=== PATIENT | male | born 1975 | race Caucasian/White ===

== ENCOUNTER 2016-05-25 02:27 | Emergency (ER) | payer OTHER ==
[2016-05-25] MEDS ORDERED: KETOROLAC TROMETHAMINE 30 MG/1 ML VIAL IM ONE (02:37)
[2016-05-25 02:38] VITALS: BP 116/68; PULSE 53; TEMP 97.9; BMI 23.6
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
[2016-05-25] MEDS ORDERED: KETOROLAC TROMETHAMINE 30 MG/1 ML VIAL ONE (02:48)
--- NOTE | 2016-05-25 02:54 | PDOC ---
*Physical Exam - Vital Signs Last Vital Signs Temp Pulse Resp BP Pulse Ox 97.9 F 53 L 20 116/68 97 05/25/16 02:36 05/25/16 02:36 05/25/16 02:36 05/25/16 02:36 05/25/16 02:36 ED Treatment Course - Medications Given in the ED: ED Medications Discontinued Medications Generic Name Dose Route Start Last Admin Trade Name Freq PRN Reason Stop Dose Admin Ketorolac Tromethamine 30 mg 05/25/16 02:37 05/25/16 02:51 Toradol Injection - IM 05/25/16 02:38 30 mg ONCE ONE Administration Medical Decision Making - Medical Decision Making 05/25/16 02:54 agree with care from DEVAN Wlide *DC/Admit/Observation/Transfer Diagnosis at time of Disposition: Muscle strain of right upper back Qualifiers: Encounter type: initial encounter Qualified Code(s): S29.012A - Strain of muscle and tendon of back wall of thorax, initial encounter - Prescriptions Prescriptions: Cyclobenzaprine HCl 7.5 mg PO HS PRN #5 tablet PRN Reason: Muscle Spasms Naproxen 250 mg PO BID #14 tablet - Referrals Referrals: Damion Desir MD [Staff Physician] - - Patient Instructions Printed Discharge Instructions: DI for Muscle Strain Additional Instructions: Please take medications as prescribed. If symptoms persist past 3-5 days, please follow up with orthopedics (referral provided). If you experience any new or worsening symptoms, please return to the ER. - Post Discharge Activity
== END 2016-05-25 02:54 | disposition home or self-care (01) ==
LOC: JER 02:27
PROC: 3E0233Z Introduction of Anti-inflammatory into Muscle, Percutaneous Approach (ICD-10-PCS; principal; 2016-05-25)
DX: S29.012A Strain of muscle and tendon of back wall of thorax, initial encounter (principal); Y35.811A Legal intervention involving manhandling, law enforcement official injured, initial encounter; Y93.89 Activity, other specified; Y92.89 Other specified places as the place of occurrence of the external cause; Y99.0 Civilian activity done for income or pay
CPT/HCPCS: 99282-25

== ENCOUNTER 2017-07-07 01:05 | Emergency (ER) | payer OTHER ==
[2017-07-07 01:26] VITALS: BP 127/89; PULSE 88; TEMP 98.6; BMI 28.0
--- NOTE | 2017-07-07 01:44 | PDOC ---
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 The patient describes his back pain as a spasm-like sensation localized in the right paraspinal area with radiation down to the sacrum, which is aggravated by movement. 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 The patient denies radiation down to the lower extremities. He denies taking medications for pain. Allergies: NKA <Jerrell Briggs - Last Filed: 07/07/17 01:58> - Resident Resident Name: Katarzyna Shankar - ED Attending Attestation I have performed the following: I have examined & evaluated the patient, The case was reviewed & discussed with the resident, I agree w/resident's findings & plan, Exceptions are as noted - Physicial Exam PE: 07/07/17 02:34 *Physical Exam General Appearance: Yes: Appropriately Dressed. No: Apparent Distress, Intoxicated HEENT: positive: EOMI, FABRICIO, Normal ENT Inspection, Normal Voice, TMs Normal, Pharynx Normal. negative: Pale Conjunctivae, Photophobia, Scleral Icterus (R), Scleral Icterus (L) Neck: positive: Trachea midline, Normal Thyroid, Supple. negative: Tender, Rigid, Carotid bruit, Stridor, Lymphadenopathy (R), Lymphadenopathy (L), Thyromegaly Respiratory/Chest: positive: Lungs Clear, Normal Breath Sounds. negative: Chest Tender, Respiratory Distress, Accessory Muscle Use, Labored Respiration, RES, Crackles, Rales, Rhonchi, Stridor, Wheezing, Dullness Cardiovascular: positive: Regular Rhythm, Regular Rate, S1, S2. negative: Edema , JVD, Murmur, Bradycardia, Tachycardia Vascular Pulses: Dorsalis-Pedis (R): 2+, Doralis-Pedis (L): 2+ Gastrointestinal/Abdominal: positive: Normal Bowel Sounds, Flat, Soft. negative : Tender, Organomegaly, Pulsatile Mass, Increased Bowel Sounds, Decreased BS, Distended, Guarding, Rebound, Hernia, Hepatomegaly, Spleenomegaly Lymphatic: negative: Adenopathy, Tenderness Musculoskeletal: positive: Normal Inspection. + right sided paraspinal muscle spasms negative: CVA Tenderness, Decreased Range of Motion Extremity: positive: Normal Capillary Refill, Normal Inspection, Normal Range of Motion, Pelvis Stable. negative: Tender, Pedal Edema, Swelling, Erythema Integumentary: positive: Normal Color, Dry, Warm. 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 negative: EOM Palsy, Facial Droop, Sensory Deficit - Medical Decision Making 07/11/17 19:42 Pt treated and released <Garcia Anand - Last Filed: 07/11/17 19:42>
[2017-07-07] MEDS ORDERED: IBUPROFEN 400 MG TABLET (FP) PO ONE ×2 (01:47→02:05)
[2017-07-07] MEDS ORDERED: METHOCARBAMOL 500 MG TABLET PO ONE (01:47)
--- NOTE | 2017-07-07 01:54 | PDOC ---
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 The patient denies any actual falls, any loss of consciousness, any neck pain, or any numbness, tingling, weakness, chest pain, abdominal pain, headache, vision changes, dizziness/lightheadedness, or other symptoms. He has not taken any medications for the pain since this happened at about 12:30 AM today. Past History - Past Medical History Allergies/Adverse Reactions: Allergies Allergy/AdvReac Type Severity Reaction Status Date / Time No Known Allergies Allergy Verified 07/07/17 01:25 Home Medications: Ambulatory Orders Acetaminophen [Tylenol] 650 mg PO PRN 05/25/16 Cyclobenzaprine HCl 7.5 mg PO HS PRN #5 tablet 05/25/16 Naproxen 250 mg PO BID #14 tablet 05/25/16 Methocarbamol [Robaxin -] 500 mg PO TID #21 tablet 07/07/17 - Immunization History Td Vaccination: Yes Immunization Up to Date: Yes - Suicide/Smoking/Psychosocial Hx Smoking Status: No Smoking History: Never smoked Years of Tobacco Use: 0 Have you smoked in the past 12 months: No Number of Cigarettes Smoked Daily: 0 Cigars Per Day: 0 Information on smoking cessation initiated: No Hx Alcohol Use: No Drug/Substance Use Hx: No Substance Use Type: None Trauma Specific PMHX - Complaint Specific PMHX Arthritis: No Review of Systems - Review of Systems Able to Perform ROS?: Yes Constitutional: No: Chills, Fever, Unexplained wgt Loss HEENTM: No: Nose Congestion, Throat Pain Respiratory: No: Cough, Shortness of Breath Cardiac (ROS): No: Chest Pain, Palpitations ABD/GI: No: Constipated, Diarrhea, Nausea, Vomiting : No: Burning, Dysuria Musculoskeletal: Yes: Back Pain. No: Neck Pain Integumentary: No: Bruising, Rash Neurological: No: Headache, Numbness, Tingling, Weakness, Dizziness Endocrine: No: Unexplained Weight Gain, Unexplained Weight Loss *Physical Exam - Vital Signs Last Vital Signs Temp Pulse Resp BP Pulse Ox 98.6 F 88 20 127/89 100 07/07/17 01:25 07/07/17 01:25 07/07/17 01:25 07/07/17 01:25 07/07/17 01:25 - Physical Exam General Appearance: Yes: Nourished, Appropriately Dressed, Other (alert, oriented, pleasant, well-appearing adult male who appear mildly uncomfortable, answering questions appropriately). No: Apparent Distress HEENT: positive: EOMI, FABRICIO, Normal Voice, Hearing Grossly Normal. negative: Scleral Icterus (R), Scleral Icterus (L), Nasal Congestion Neck: positive: Trachea midline, Supple. negative: Tender, Rigid Respiratory/Chest: negative: Respiratory Distress, Labored Respiration, Rapid RR , Stridor Cardiovascular: positive: Regular Rhythm, Regular Rate. negative: Murmur Gastrointestinal/Abdominal: positive: Flat, Soft. negative: Tender, Pulsatile Mass, Guarding Musculoskeletal: positive: Normal Inspection, Muscle Spasm, Other (appears to be holding back in a bit of a stiff position, no vertebral stepoff or deformity) . negative: CVA Tenderness, Vertebral Tenderness Extremity: positive: Normal Capillary Refill, Normal Inspection, Normal Range of Motion. negative: Tender, Cyanosis Integumentary: positive: Normal Color, Dry, Warm. negative: Erythema, Rash, Bruising Neurologic: positive: cushion maker II-XII NML intact (grossly), Fully Oriented, Alert, Normal Mood/Affect, Normal Response, Motor Strength 5/5. negative: EOM Palsy, Facial Droop, Numbness, Sensory Deficit, Confused, Disoriented Medical Decision Making - Medical Decision Making Patient with h/o occasional flares of back pain and herniated lumbar disc p/w acute right T/L paraspinous pain after heavy lifting work injury. No new red flag symptoms (see HPI). Initial Vital Signs Temp Pulse Resp BP Pulse Ox 97.4 F L 78 18 132/75 99 07/07/17 01:27 07/07/17 01:27 07/07/17 01:27 07/07/17 01:27 07/07/17 01:27 Exam: Well appearing, a bit uncomfortable, stiff back, right paraspinous ttp and moderate spasm without vertebral stepoff or deformity. DDX IBNLT: back strain/sprain, less likely compression or other vertebral/ spinous process fracture, DDD, DJD, osteophyte, or other more concerning etiology. W/U ordered: CT L-Spine without contrast. TX ordered: Motrin 800 mg, Robaxin [address] L-Spine: Loss of intervertebral disc space height, and disc bulge, but no acute bony abnormality. Reassessment: Pain and spasm much improved after ED medications. The patient has gotten significant relief of symptoms with ED medications. They are appropriate for discharge with close outpatient follow up. The patient is comfortable with this plan and will follow up with their PCP in 1 -3 days. Return precautions are discussed and they will come back to the ER if necessary. *DC/Admit/Observation/Transfer Diagnosis at time of Disposition: Back sprain, Muscle spasm, Work related injury - Discharge Dispostion Disposition: HOME Condition at time of disposition: Stable Decision to Admit order: No - Prescriptions Prescriptions: Methocarbamol [Robaxin -] 500 mg PO TID #21 tablet - Referrals - Patient Instructions Printed Discharge Instructions: DI for Back Strain or Sprain Additional Instructions: You were seen in the ER for a work-related back injury (back strain/sprain with muscle spasms). We gave you Robaxin and Motrin here in the ER, which helped with your pain. We did a CT scan of the lower back because this is where bones are most commonly injured during heavy lifting. We did not find any new changes on the CT that could indicate any serious injury. After our assessment, we do not believe you are having a medical emergency at this time, and we believe you are safe to go home. 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 Take Motrin 800 mg if you need it for pain (follow the directions on the bottle), or Tylenol up to 1,000 mg for additional pain control (follow the directions on the bottle). Please follow up with your regular PCP doctor in the next 1-4 days , Call their clinic as soon as possible, tell them you were seen in the ER for back pain, and tell them you need an appointment. If you have any new or worsening symptoms please come back to the ER at any time (24 hours a day), especially for new numbness, new tingling, new weakness, new urinary or bowel incontinence or retention, pain you cannot control with Robaxin, Motrin, and Tylenol, or other new symptoms. If you are having severe or life threatening symptoms, or symptoms that make it unsafe to drive or have someone drive you, please call 911. - Post Discharge Activity Forms/Work/School Notes: Back to Work
[2017-07-07] MEDS ORDERED: METHOCARBAMOL 500 MG TABLET ONE (02:05)
== END 2017-07-07 03:09 | disposition home or self-care (01) ==
LOC: JER 01:05
DX: S33.5XXA Sprain of ligaments of lumbar spine, initial encounter (principal); X58.XXXA Exposure to other specified factors, initial encounter; Y93.89 Activity, other specified; Y92.89 Other specified places as the place of occurrence of the external cause; Y99.0 Civilian activity done for income or pay; M62.830 Muscle spasm of back
CPT/HCPCS: 72131-TC; 99283-25

== ENCOUNTER 2018-05-26 17:04 | Emergency (ER) | payer OTHER ==
[2018-05-26 17:19] VITALS: BP 119/83; PULSE 48; TEMP 97.8; BMI 25.1
--- NOTE | 2018-05-26 17:35 | PDOC ---
History of Present Illness - General Chief Complaint: Pain, Acute Stated Complaint: ARM INJURY/[facility] Time Seen by Provider: 05/26/18 17:16 - History of Present Illness Initial Comments: 05/26/18 17:33 42-year-old male without comorbidities presents for evaluation of right elbow and wrist pain. 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 No head injury loss consciousness post injury nausea vomiting or headache. No post injury visual changes. Only injury is right wrist and elbow. Past History - Past Medical History Allergies/Adverse Reactions: Allergies Allergy/AdvReac Type Severity Reaction Status Date / Time No Known Allergies Allergy Verified 05/26/18 17:14 Home Medications: Ambulatory Orders NK [No Known Home Medication] 05/26/18 COPD: No - Immunization History Td Vaccination: Yes Immunization Up to Date: Yes - Suicide/Smoking/Psychosocial Hx Smoking Status: No Smoking History: Never smoked Years of Tobacco Use: 0 Have you smoked in the past 12 months: No Number of Cigarettes Smoked Daily: 0 Cigars Per Day: 0 Information on smoking cessation initiated: No Hx Alcohol Use: No Drug/Substance Use Hx: No Substance Use Type: None Review of Systems - Review of Systems Musculoskeletal: Yes: Joint Pain *Physical Exam - Vital Signs Last Vital Signs Temp Pulse Resp BP Pulse Ox 97.8 F 48 L 16 119/83 97 05/26/18 17:14 05/26/18 17:14 05/26/18 17:14 05/26/18 17:14 05/26/18 17:14 - Physical Exam Comments: 05/26/18 17:34 Right wrist skin color and temperature are normal. Range of motion is full with discomfort at terminal flexion and extension. Negative axial grind. No TFCC tenderness. No scaphoid tenderness. Mild tenderness over the area of the scapholunate ligament. Full supination and pronation without discomfort. No gross sensorimotor deficits. Is neurovascularly intact. Right elbow skin color and temperature are normal. There is a superficial abrasion on the posterior aspect of the right elbow. Full range of motion supination and pronation. No tenderness about the radial head with deep palpation. No tenderness about the biceps tendon. Mild tenderness over the area of the olecranon medial and lateral epicondyle. No evidence of instability or gross sensorimotor deficits. Is neurovascularly intact. Moderate Sedation - Procedure Monitoring Vital Signs: Procedure Monitoring Vital Signs Temperature 97.8 F 05/26/18 17:14 Pulse Rate 48 L 05/26/18 17:14 Respiratory Rate 16 05/26/18 17:14 Blood Pressure 119/83 05/26/18 17:14 O2 Sat by Pulse Oximetry (%) 97 05/26/18 17:14 ED Treatment Course - RADIOLOGY Radiology Studies Ordered: Category Date Time Status ELBOW-RIGHT [RAD] Stat Radiology 05/26/18 17:33 Ordered WRIST- RIGHT [RAD] Stat Radiology 05/26/18 17:33 Ordered Medical Decision Making - Medical Decision Making 05/26/18 17:56 X-rays of the right wrist show scapholunate widening no acute fracture. X-rays of the right elbow show no evidence of fracture trauma destructive process *DC/Admit/Observation/Transfer Diagnosis at time of Disposition: Wrist sprain, Elbow contusion - Discharge Dispostion Disposition: HOME Condition at time of disposition: Stable Decision to Admit order: No - Referrals Referrals: Matthias Hunter DO [Staff Physician] - - Patient Instructions Printed Discharge Instructions: Wrist Sprain, DI for Wrist Sprain Additional Instructions: Return to the emergency room for worsening symptoms. Please use the wrist splint 24 7 removed only for hygiene. Follow-up with orthopedic surgery in 1-2 days for further evaluation and treatment options and return to the emergency room for worsening symptoms. Tylenol and Motrin as directed for pain - Post Discharge Activity
== END 2018-05-26 18:12 | disposition home or self-care (01) ==
LOC: JER 17:04 → JERFT 17:04
DX: S63.501A Unspecified sprain of right wrist, initial encounter (principal); S50.01XA Contusion of right elbow, initial encounter; W18.39XA Other fall on same level, initial encounter; Y93.89 Activity, other specified; Y92.89 Other specified places as the place of occurrence of the external cause; Y99.0 Civilian activity done for income or pay
CPT/HCPCS: 73070-TC-RT-FY; 73110-TC-RT-FY; 99281-25

== ENCOUNTER 2019-11-03 08:38 | Emergency (ER) | payer OTHER ==
[2019-11-03] MEDS ORDERED: DIPHTH,PERTUSS(ACELL),TET 0.5 ML DISP.SYRIN IM ONE ×2 (08:42→08:44)
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
[2019-11-03 08:51] VITALS: BP 111/63; PULSE 50; TEMP 97.7; BMI 25.1
== END 2019-11-03 09:04 | disposition home or self-care (01) ==
LOC: FER 08:38
PROC: 3E0234Z Introduction of Serum, Toxoid and Vaccine into Muscle, Percutaneous Approach (ICD-10-PCS; principal; 2019-11-03)
DX: S80.11XA Contusion of right lower leg, initial encounter (principal)
CPT/HCPCS: 90715; 99284-25

== ENCOUNTER 2022-02-25 08:31 | Emergency (ER) | payer OTHER ==
[2022-02-25] MEDS ORDERED: ACETAMINOPHEN 325 MG TABLET (FP) PO ONE (08:45)
[2022-02-25] MEDS ORDERED: ACETAMINOPHEN 325 MG TABLET (FP) ONE (08:53)
[2022-02-25 09:04] VITALS: BP 101/65; PULSE 50; RESP 18; TEMP 98.2; BMI 24.3
== END 2022-02-25 09:06 | disposition home or self-care (01) ==
LOC: FER 08:31
DX: S60.312A Abrasion of left thumb, initial encounter (principal); W26.8XXA Contact with other sharp object(s), not elsewhere classified, initial encounter
CPT/HCPCS: 99283-25